=== PATIENT | female | born 1965 | race Caucasian/White ===

== ENCOUNTER 2025-09-04 12:18 | Emergency (ER) | payer OTHER, SELFPAY ==
[2025-09-04 12:31] VITALS: BP 168/95; PULSE 90; RESP 16; TEMP 36.3; O2SAT 100
--- NOTE | 2025-09-04 12:48 | ED_ITS ---
HPI - Back Pain/Injury General Chief Complaint: Back Pain/Injury Stated Complaint: back pain Source: patient Mode of arrival: ambulatory Limitations: no limitations History of Present Illness HPI Narrative: this is a 60-year-old female patient who presents to the urgent care with complaints of back pain. Patient states she has back pain on and off, she can usually take Aleve or Tylenol and it will resolve. Patient states on Sunday she noticed that her right lower back started to hurt worse. She states the pain continued to worsen throughout the day, started to radiate into her hip and her back side of her thigh. Patient states she did see her chiropractor, the did x- rays, stated she showed arthritis but no concerning findings. She had 2 adjustments that did not help. Patient continues to use Aleve as well as Tylenol with minimal home. She did find some old is Zanaflex and took 1 with no relief. 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 She denies any loss of bowel or bladder control, she states she does have urinary incontinence at times, this is not a new finding for her however. She denies any dysuria frequency. Patient denies any injury or known cause of the back pain. MD elicited complaint: back pain Pertinent past history: prior back pain Onset (ago): day(s) (5) Timing: constant Severity: moderate Pain scale (0-10): 7 Similar Symptoms Previously: No Quality: stabbing, aching and spasming Location: lumbar spine and right lower back Radiation: buttocks (right hip) Exacerbating factors: movement and lifting Relieving factors: none Associated symptoms: denies other symptoms Treatments prior to arrival: heat therapy Related Data Allergies Allergy/AdvReac Type Severity Reaction Status Date / Time lactase (From [employer]) AdvReac Mild Gastrointestinal Verified 09/04/25 12:36 Upset Exam 2 Const: General: healthy appearing Nutritional Appearance: well nourished Orientation/consciousness: patient oriented x3 Limitations: no limitations HENMT: Head: normal to inspection Face and sinus: normal facial exam M outh: Yes Normal oral and palatal mucosa present Teeth and gingiva: dentition normal Throat: posterior oropharynx normal Eyes: Conjunctivae: conjunctivae normal Pupils: Equal, round and reactive pupils present Neck: Neck: normal visual inspection Resp: Effort & Inspection: normal respiratory effort Auscultation: clear to auscultation bilaterally Cardio: Rate: regular rate Rhythm: regular rhythm GI: GI Palp: Yes Soft to palpation Auscultation: normal bowel sounds Back/Spine/Pelvis: Cervical Spine: normal cervical lordosis and cervical ROM normal Thoracic/Lumbar Spine: straight leg raise negative bilaterally, paraspinal muscle tenderness on the right in the lower lumbar (sciatic region) and thoraco-lumbar ROM limited with rotation to the right Sacroiliac joints: on the right tender to palpation Back/spine/pelvis image: 1. tenderness on palpation Skin: General skin exam: normal color Rashes: no rashes Wounds: no wounds Neuro: General: patient oriented x3 Speech: normal speech Extrem: General: normal to inspection Psych: Mental Status: mental status grossly normal Attitude: cooperative Course Course Emergency Course: this is a 60-year-old female patient who presents to the urgent care with complaints of back pain. Patient states she has back pain on and off, she can usually take Aleve or Tylenol and it will resolve. Patient states on Sunday she noticed that her right lower back started to hurt worse. She states the pain continued to worsen throughout the day, started to radiate into her hip and her back side of her thigh. Patient states she did see her chiropractor, the did x- rays, stated she showed arthritis but no concerning findings. She had 2 adjustments that did not help. Patient continues to use Aleve as well as Tylenol with minimal home. She did find some old is Zanaflex and took 1 with no relief. 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 She denies any loss of bowel or bladder control, she states she does have urinary incontinence at times, this is not a new finding for her however. She denies any dysuria frequency. Patient denies any injury or known cause of the back pain. vital signs reviewed patient exam noted sciatic positive pain. patient educated on findings and management outpatient. patient verbalized understanding. Patient was given IM Toradol. Patient educated on need for follow-up with her primary care provider, continue with prednisone high dose taper as instructed, continue with Robaxin as instructed for muscle relaxation, do not drive, consume alcohol, operate heavy machinery while taking Robaxin. Increase fluids and rest. No heavy lifting, twisting, pushing or pulling. Continue with heat for 20 minutes to the area off 1 hour. Exercises as instructed. Return to the urgent care or emergency department with a worrisome sign or symptom. Answered all questions to her satisfaction she is agreeable plan. Patient denied any further needs or concerns to be addressed prior to discharge Level of Care: Express Care Visit Vital Signs Vital signs: Vital Signs Temperature 97.3 F L 09/04/25 12:31 Pulse Rate 90 09/04/25 12:31 Respiratory Rate 16 09/04/25 12:31 Blood Pressure 168/95 H 09/04/25 12:31 Pulse Oximetry 100 09/04/25 12:31 Oxygen Delivery Room Air 09/04/25 12:31 Temperature 97.3 F L 09/04/25 12:31 Pulse Rate 90 09/04/25 12:31 Respiratory Rate 16 09/04/25 12:31 Blood Pressure 168/95 H 09/04/25 12:31 Pulse Oximetry 100 09/04/25 12:31 Oxygen Delivery Room Air 09/04/25 12:31 MDM - Back Pain/Injury MDM Narrative Medical decision making narrative: this is a 60-year-old female patient who presents to the urgent care with complaints of back pain. Patient states she has back pain on and off, she can usually take Aleve or Tylenol and it will resolve. Patient states on Sunday she noticed that her right lower back started to hurt worse. She states the pain continued to worsen throughout the day, started to radiate into her hip and her back side of her thigh. Patient states she did see her chiropractor, the did x- rays, stated she showed arthritis but no concerning findings. She had 2 adjustments that did not help. Patient continues to use Aleve as well as Tylenol with minimal home. She did find some old is Zanaflex and took 1 with no relief. 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 She denies any loss of bowel or bladder control, she states she does have urinary incontinence at times, this is not a new finding for her however. She denies any dysuria frequency. Patient denies any injury or known cause of the back pain. vital signs reviewed patient exam noted sciatic positive pain. patient educated on findings and management outpatient. patient verbalized understanding. Patient was given IM Toradol. Patient educated on need for follow-up with her primary care provider, continue with prednisone high dose taper as instructed, continue with Robaxin as instructed for muscle relaxation, do not drive, consume alcohol, operate heavy machinery while taking Robaxin. Increase fluids and rest. No heavy lifting, twisting, pushing or pulling. Continue with heat for 20 minutes to the area off 1 hour. Exercises as instructed. Return to the urgent care or emergency department with a worrisome sign or symptom. Answered all questions to her satisfaction she is agreeable plan. Patient denied any further needs or concerns to be addressed prior to discharge Differential Diagnosis Differential diagnosis: Likely lumbar radiculopathy and sciatica Medical Records Attestation: I reviewed the patient's medical records. Discharge Plan Discharge Clinical Impression: Sciatica, Strain of lumbar region Patient Disposition: Home Condition: Stable Instructions: Sciatica (ED), Lumbar Radiculopathy (ED), Lower Back Exercises (ED) Additional Instructions: rest avoid heavy lifting or straining continue with prednisone high dose taper continue with pain medication as prescribed, take with food to reduce GI upset. No further NSAIDs such as ibuprofen, Aleve, naproxen take Robaxin, for muscle relaxation, however do not consume alcohol, drive, or operate heavy machinery while taking Robaxin. exercise as instructed heat to the area for 20 minutes off on our Follow-up with primary care provider in 3-4 days for further evaluation exam return to the urgent care or emergency department for worrisome sign or symptom Patient Language: Amharic Prescriptions: New ibuprofen 600 mg tablet 600 mg PO .tid prn Qty: 12 0RF prednisone 20 mg tablet 40 mg PO BID 5 Days Qty: 20 0RF Rx Instructions: 20 mg orally methocarbamol 500 mg tablet 500 mg PO .q8h PRN (Reason: back pain) 3 Days Qty: 9 0RF Follow-up/Referrals: Joseph,Yo Elias MD [Primary Care Provider, Unknown] Time of Disposition: 13:08
[2025-09-04 12:56] LABS: EDUAAPPEAR Clear; EDUABILI Negative (Negative); EDUABLOOD 2+ (Negative); EDUACOLOR1 Yellow; EDUAGLUCOSE Negative (Negative); EDUAKETONE Negative (Negative); EDUALEUKO Negative (Negative); EDUANITRATE Negative (Negative); EDUAPH 7.5; EDUAPROTEIN Negative (Negative); EDUASPGRAVITY 1.015; EDUAUROBILI 0.2
[2025-09-04] MEDS: KETOROLAC 30 MG/ML VIAL (*BKC) IM (13:01)
== END 2025-09-04 13:14 | disposition home or self-care (01) ==
PROVIDERS: Emergency Provider Nurse Practitioner Family; PCP Internal Medicine
DX: M54.32 Sciatica, left side (principal); S39.012A Strain of muscle, fascia and tendon of lower back, initial encounter; X58.XXXA Exposure to other specified factors, initial encounter
CPT/HCPCS: 81003; 96372; 99203; G0463; J1885